=== PATIENT | female | born 1990 | race African-American/Black ===

== ENCOUNTER 2017-02-16 15:56 | Emergency (ER) | payer OTHER ==
[2017-02-16 16:44] VITALS: BP 140/72; PULSE 80; TEMP 98.6; BMI 35.3
[2017-02-16] MEDS ORDERED: DIPHTH,PERTUSS(ACELL),TET 0.5 ML DISP.SYRIN IM ONE (17:32)
--- NOTE | 2017-02-16 17:44 | PDOC ---
History of Present Illness - General Chief Complaint: Laceration Stated Complaint: LACERATED RT FINGER Time Seen by Provider: 02/16/17 17:27 History Source: Patient Exam Limitations: No Limitations - History of Present Illness Initial Comments: 02/16/17 17:39 CHIEF COMPLAINT: Fingertip avulsion right third finger. 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 Sustained fingertip avulsion to right third finger at approximately 2 PM today. Bleeding controlled upon arrival, good range of motion of finger, there is no visible tendon, ligament or bone. Timing/Duration: reports: this afternoon Severity: Yes: moderate Location: reports: extremities Past History - Past Medical History Allergies/Adverse Reactions: Allergies Allergy/AdvReac Type Severity Reaction Status Date / Time shellfish derived AdvReac Severe Difficulty Verified 02/16/17 16:44 Breathing Home Medications: Ambulatory Orders Salmeterol/Fluticasone [Advair 100Mcg/50Mcg -] 1 inh PO BID 06/12/14 Montelukast Na [Singulair -] 10 mg PO HS 01/30/16 Cephalexin [Keflex] 500 mg PO TID #15 capsule 02/16/17 Oxycodone HCl/Acetaminophen [Percocet 5-325 mg Tablet] 1 - 2 tab PO Q6H #14 tablet MDD 6 02/16/17 Asthma: Yes Cancer: No Cardiac Disorders: No Diabetes: No Disorders: Yes (renal stones) HTN: No Seizures: No Thyroid Disease: No - Reproductive History Cervical CA: No Dysfunctional Uterine Bleeding: No Ectopic : No Endometrial CA: No - Immunization History Immunization Up to Date: No - Psycho/Social/Smoking Cessation Hx Anxiety: No Suicidal Ideation: No Smoking History: Current some day smoker Number of Cigarettes Smoked Daily: 4 Information on smoking cessation initiated: No 'Breaking Loose' booklet given: 02/03/16 Hx Alcohol Use: Yes (SOCIAL) Drug/Substance Use Hx: No Substance Use Type: None Hx Substance Use Treatment: No Review of Systems - Review of Systems Constitutional: No: Symptoms Reported HEENTM: No: Symptoms Reported Respiratory: No: Symptoms reported Musculoskeletal: No: Joint Pain, Joint Swelling Integumentary: Yes: Other (2 cm fingertip avulsion with left lateral nail partial avulsion, flap not noted.) Neurological: No: Symptoms reported, Paresthesia, Tingling, Tremors Hematologic/Lymphatic: No: Symptoms Reported All Other Systems: Reviewed and Negative *Physical Exam - Vital Signs Last Vital Signs Temp Pulse Resp BP Pulse Ox 98.6 F 80 20 140/72 100 02/16/17 16:40 02/16/17 16:40 02/16/17 16:40 02/16/17 16:40 02/16/17 16:40 - Physical Exam General Appearance: Yes: Appropriately Dressed. No: Apparent Distress Lymphatic: negative: Adenopathy Musculoskeletal: positive: Normal Inspection Extremity: positive: Other (centimeter distal fingertip avulsion with partial left medial nail avulsion. ). negative: Erythema Integumentary: negative: Erythema, Swelling, Ecchymosis, Bruising Neurologic: positive: Alert, Normal Mood/Affect ED Treatment Course - Medications Given in the ED: ED Medications Discontinued Medications Generic Name Dose Route Start Last Admin Trade Name Freq PRN Reason Stop Dose Admin Oxycodone/Acetaminophen 1 combo 02/16/17 17:31 02/16/17 17:35 Percocet 5/325 - PO 02/16/17 17:32 1 combo ONCE ONE Administration Medical Decision Making - Medical Decision Making 02/16/17 17:45 A/P: Patient here for fingertip avulsion to the right third finger. Area cleansed with normal saline, there is no flap noted. Surgicel placed on, hemostasis achieved, sterile dressing applied, care instructions given to patient. Instructed patient to leave Surgicel intact until it falls off on its own, than increased redness swelling or signs of infection will need to return to ER. *DC/Admit/Observation/Transfer Diagnosis at time of Disposition: Avulsion, finger tip Qualifiers: Encounter type: initial encounter Qualified Code(s): S61.209A - Unspecified open wound of unspecified finger without damage to nail, initial encounter - Discharge Dispostion Disposition: HOME Condition at time of disposition: Good Admit: No - Prescriptions Prescriptions: Cephalexin [Keflex] 500 mg PO TID #15 capsule Oxycodone HCl/Acetaminophen [Percocet 5-325 mg Tablet] 1 - 2 tab PO Q6H #14 tablet MDD 6 - Patient Instructions Printed Discharge Instructions: DI for Avulsion Laceration (Not Requiring Sutures) Additional Instructions: Please keep area clean and dry Please keep dressing on until tomorrow please leave Surgicel is directly on wound on until it falls off on its own. If any increased redness swelling or signs of infection return to ER
== END 2017-02-16 18:05 | disposition home or self-care (01) ==
LOC: JERFT 15:56
PROC: 3E0234Z Introduction of Serum, Toxoid and Vaccine into Muscle, Percutaneous Approach (ICD-10-PCS; principal; 2017-02-16)
PROC: 0HQFXZZ Repair Right Hand Skin, External Approach (ICD-10-PCS; 2017-02-16)
DX: S61.212A Laceration without foreign body of right middle finger without damage to nail, initial encounter (principal); W31.82XA Contact with other commercial machinery, initial encounter; Y93.G1 Activity, food preparation and clean up; Y92.512 Supermarket, store or market as the place of occurrence of the external cause; Y99.0 Civilian activity done for income or pay
CPT/HCPCS: 90715; 99281-25

== ENCOUNTER 2018-06-03 15:01 | Emergency (ER) | payer OTHER ==
[2018-06-03 15:13] VITALS: BMI 32.5
[2018-06-03] MEDS ORDERED: predniSONE 20 MG TABLET (UD) PO ONE (15:20)
[2018-06-03] MEDS ORDERED: predniSONE 20 MG TABLET (UD) ONE (15:28)
[2018-06-03] MEDS ORDERED: ALBUTEROL SO4 2.5/IPRATROPIUM 0.5 INH SOL 3 ML VIAL.NEB. NEB ONE ×5 (15:28→19:58)
[2018-06-03] MEDS: ALBUTEROL SO4 2.5/IPRATROPIUM 0.5 INH SOL 3 ML VIAL.NEB. NEB SCH ×4 (15:38→16:52)
--- NOTE | 2018-06-03 15:46 | PDOC ---
History of Present Illness - General Chief Complaint: Asthma Stated Complaint: ASTHMA Time Seen by Provider: 06/03/18 15:14 History Source: Patient - History of Present Illness Timing/Duration: other Associated Symptoms: reports: cough, shortness of breath. denies: fever/chills Past History - Past Medical History Allergies/Adverse Reactions: Allergies Allergy/AdvReac Type Severity Reaction Status Date / Time shellfish derived AdvReac Severe Difficulty Verified 06/03/18 15:12 Breathing Home Medications: Ambulatory Orders Salmeterol/Fluticasone [Advair 100Mcg/50Mcg -] 1 inh PO BID 06/12/14 Montelukast Na [Singulair -] 10 mg PO HS 01/30/16 Cephalexin [Keflex] 500 mg PO TID #15 capsule 02/16/17 Oxycodone HCl/Acetaminophen [Percocet 5-325 mg Tablet] 1 - 2 tab PO Q6H #14 tablet MDD 6 02/16/17 Prednisone [Deltasone] 40 mg PO DAILY #8 tablet 06/03/18 Asthma: Yes Cancer: No Cardiac Disorders: No COPD: No Diabetes: No Disorders: Yes (renal stones) HTN: No Seizures: No Thyroid Disease: No - Reproductive History Cervical CA: No Dysfunctional Uterine Bleeding: No Ectopic : No Endometrial CA: No - Immunization History Immunization Up to Date: No - Suicide/Smoking/Psychosocial Hx Smoking History: Never smoked Number of Cigarettes Smoked Daily: 4 'Breaking Loose' booklet given: 02/03/16 Hx Alcohol Use: Yes (SOCIAL) Drug/Substance Use Hx: No Substance Use Type: None Hx Substance Use Treatment: No Review of Systems - Review of Systems Constitutional: No: Chills, Fever Respiratory: Yes: Cough, Shortness of Breath, Wheezing Cardiac (ROS): Yes: Chest Tightness *Physical Exam - Vital Signs Last Vital Signs Temp Pulse Resp BP Pulse Ox 98.4 F 103 H 20 119/83 98 06/03/18 15:10 06/03/18 15:10 06/03/18 15:10 06/03/18 15:10 06/03/18 15:10 - Physical Exam General Appearance: Yes: Appropriately Dressed. No: Apparent Distress HEENT: positive: Normal Voice Neck: positive: Supple. negative: Lymphadenopathy (R), Lymphadenopathy (L) Respiratory/Chest: positive: Wheezing. negative: Respiratory Distress Cardiovascular: positive: S1, S2, Tachycardia Integumentary: positive: Dry, Warm Neurologic: positive: Fully Oriented, Alert, Normal Mood/Affect Moderate Sedation - Procedure Monitoring Vital Signs: Procedure Monitoring Vital Signs Temperature 98.4 F 06/03/18 15:10 Pulse Rate 103 H 06/03/18 15:10 Respiratory Rate 20 06/03/18 15:10 Blood Pressure 119/83 06/03/18 15:10 O2 Sat by Pulse Oximetry (%) 98 06/03/18 15:10 ED Treatment Course - Medications Given in the ED: ED Medications Discontinued Medications Generic Name Dose Route Start Last Admin Trade Name Sara PRN Reason Stop Dose Admin Prednisone 60 mg 06/03/18 15:20 06/03/18 15:38 Deltasone - PO 06/03/18 15:21 60 mg ONCE ONE Administration Medical Decision Making - Medical Decision Making 06/03/18 16:09 27-year-old female, history of asthma, uses pump and nebulizer at home, s/p last admission a year ago at [facility], no intubations, here with shortness of breath and wheezing in the setting of URI x several days. States medications not relieving symptoms at home. Denies fever or chills. No history of pneumonia and no tobacco history See exam Asthma flare Sating 98% on RA and in NAD w/ +wheezing diffusely -nebs -pred -reassess 06/03/18 16:56 Pt continues to complain of shortness of breath, wheezing and chest tightness despite multiple nebulizers and steroids. CXR done and negative. At this point will order mag and get basic labs in anticipation for observation admission. Pt signed out to EDWINA Hendrix at this time 06/03/18 16:58 *DC/Admit/Observation/Transfer Diagnosis at time of Disposition: Asthma Qualifiers: Asthma severity: mild Asthma persistence: unspecified Asthma complication type : with acute exacerbation Qualified Code(s): J45.901 - Unspecified asthma with ( acute) exacerbation - Prescriptions Prescriptions: Prednisone [Deltasone] 40 mg PO DAILY #8 tablet - Referrals - Patient Instructions - Post Discharge Activity
[2018-06-03] MEDS ORDERED: MAGNESIUM SULF 50% (8.12 MEQ/2 ML-1 GM VIAL) IVPB ONE (16:55)
[2018-06-03] MEDS ORDERED: MAGNESIUM 1GM/D5W - 1 GM/100 ML IVPB IVPB ONE (17:33)
[2018-06-03 17:38] LABS: BASO % 0.5 % (0-2.0); EOS % 2.7 % (0-4.5); HEMATOCRIT 38.6 % (32.4-45.2); LYMPH % 23.7 % (8-40); MCH 32.8 pg (25.7-33.7); MCHC 36.3 g/dl (32.0-36.0); MEAN CELL VOLUME 90.4 fl (80-96); MEAN PLT VOLUME 8.9 fl (7.5-11.1); MONO % 4.7 % (3.8-10.2); NEUT % 68.4 % (42.8-82.8); PLATELET COUNT 216 K/MM3 (134-434); RBC 4.27 M/mm3 (3.60-5.2); RDW 12.8 % (11.6-15.6); WHITE BLOOD COUNT 6.9 K/mm3 (4.0-10.0)
[2018-06-03 18:23] LABS: ALBUMIN 3.6 g/dl (3.4-5.0); ALK PHOS 65 U/L (45-117); ANION GAP 7 MMOL/L (8-16); BILIRUBIN,TOTAL 0.6 mg/dL (0.2-1); BLOOD UREA NITROGEN 7 mg/dL (7-18); CALCIUM 8.6 mg/dL (8.5-10.1); CHLORIDE 108 mmol/L (98-107); CO2 22 mmol/L (21-32); CREATININE 0.9 mg/dL (0.55-1.3); GLUCOSE,RANDOM 94 mg/dL (74-106); POTASSIUM 4.3 mmol/L (3.5-5.1); SGPT/ALT 29 U/L (13-61); SODIUM 137 mmol/L (136-145); TOT PROT 7.7 g/dl (6.4-8.2)
[2018-06-03 18:24] LABS: SGOT/AST 29 U/L (15-37)
--- NOTE | 2018-06-03 18:45 | PDOC ---
*Physical Exam - Vital Signs Last Vital Signs Temp Pulse Resp BP Pulse Ox 98.4 F 103 H 20 119/83 98 06/03/18 15:10 06/03/18 15:10 06/03/18 15:10 06/03/18 15:10 06/03/18 15:10 - Physical Exam General Appearance: Yes: Nourished, Appropriately Dressed, Apparent Distress Respiratory/Chest: positive: Normal Breath Sounds, Wheezing (expiratory wheezing to the bases with fair aeration). negative: Respiratory Distress, Accessory Muscle Use Cardiovascular: positive: Regular Rhythm, Regular Rate, S1, S2 (present). negative: Murmur ED Treatment Course - LABORATORY CBC & Chemistry Diagram: 06/03/18 16:38 06/03/18 16:38 - ADDITIONAL ORDERS Additional order review: Laboratory Results 06/03/18 06/03/18 16:38 16:17 Sodium 137 Potassium 4.3 Chloride 108 H Carbon Dioxide 22 Anion Gap 7 L BUN 7 Creatinine 0.9 Creat Clearance w eGFR > 60 Random Glucose 94 Calcium 8.6 Total Bilirubin 0.6 AST 29 ALT 29 Alkaline Phosphatase 65 Total Protein 7.7 Albumin 3.6 Urine HCG, Qual Negative 06/03/18 16:38 RBC 4.27 MCV 90.4 MCHC 36.3 H RDW 12.8 MPV 8.9 Neutrophils % 68.4 D Lymphocytes % 23.7 D Monocytes % 4.7 Eosinophils % 2.7 Basophils % 0.5 - Medications Given in the ED: ED Medications Discontinued Medications Generic Name Dose Route Start Last Admin Trade Name Freq PRN Reason Stop Dose Admin Albuterol/Ipratropium 1 amp 06/03/18 15:30 06/03/18 16:52 Duoneb - NEB 06/03/18 16:16 1 amp Q15M JH Administration Prednisone 60 mg 06/03/18 15:20 06/03/18 15:38 Deltasone - PO 06/03/18 15:21 60 mg ONCE ONE Administration Medical Decision Making - Medical Decision Making 06/03/18 18:42 Pt is a 27 y/o F with PMH of asthma who presents to the ED for asthma exacerbation in the setting of URI. Initially seen in fast track and upgraded for wheezing and tight breath sounds despite two duonebs and prednisone -Mag started -Pt reports feeling better -Good aeration to the bases at this point; however, moderate wheezing still present -2 more duonebs ordered -Lab work is unremarkable, CXR is negative -Sign out given to PENNY Palafox. Pending treatment and re-evaluation *DC/Admit/Observation/Transfer Diagnosis at time of Disposition: Asthma Qualifiers: Asthma severity: mild Asthma persistence: unspecified Asthma complication type : with acute exacerbation Qualified Code(s): J45.901 - Unspecified asthma with ( acute) exacerbation - Prescriptions Prescriptions: Prednisone [Deltasone] 40 mg PO DAILY #8 tablet - Referrals - Patient Instructions - Post Discharge Activity
[2018-06-03] MEDS ORDERED: MAGNESIUM 1GM/D5W - 2 GM/200 ML IVPB IVPB ONE (19:04)
[2018-06-03 19:54] VITALS: BP 116/73; PULSE 96; TEMP 98.1
--- NOTE | 2018-06-03 19:59 | PDOC ---
*Physical Exam - Vital Signs Last Vital Signs Temp Pulse Resp BP Pulse Ox 98.1 F 96 H 20 116/73 97 06/03/18 19:53 06/03/18 19:53 06/03/18 19:53 06/03/18 19:53 06/03/18 19:53 - Physical Exam General Appearance: Yes: Appropriately Dressed. No: Apparent Distress Neck: positive: Trachea midline, Supple Respiratory/Chest: positive: Wheezing (Expirational). negative: Respiratory Distress, Accessory Muscle Use Cardiovascular: positive: Regular Rhythm, Regular Rate, S1, S2. negative: Edema , Murmur ED Treatment Course - LABORATORY CBC & Chemistry Diagram: 06/03/18 16:38 06/03/18 16:38 - ADDITIONAL ORDERS Additional order review: Laboratory Results 06/03/18 06/03/18 16:38 16:17 Sodium 137 Potassium 4.3 Chloride 108 H Carbon Dioxide 22 Anion Gap 7 L BUN 7 Creatinine 0.9 Creat Clearance w eGFR > 60 Random Glucose 94 Calcium 8.6 Total Bilirubin 0.6 AST 29 ALT 29 Alkaline Phosphatase 65 Total Protein 7.7 Albumin 3.6 Urine HCG, Qual Negative 06/03/18 16:38 RBC 4.27 MCV 90.4 MCHC 36.3 H RDW 12.8 MPV 8.9 Neutrophils % 68.4 D Lymphocytes % 23.7 D Monocytes % 4.7 Eosinophils % 2.7 Basophils % 0.5 - Medications Given in the ED: ED Medications Discontinued Medications Generic Name Dose Route Start Last Admin Trade Name Freq PRN Reason Stop Dose Admin Albuterol/Ipratropium 1 amp 06/03/18 15:30 06/03/18 16:52 Duoneb - NEB 06/03/18 16:16 1 amp Q15M JH Administration Albuterol/Ipratropium 1 amp 06/03/18 18:42 06/03/18 19:18 Duoneb - NEB 06/03/18 18:43 1 amp ONCE ONE Administration Albuterol/Ipratropium 1 amp 06/03/18 18:42 06/03/18 19:18 Duoneb - NEB 06/03/18 18:43 1 amp ONCE ONE Administration Magnesium Sulfate 2 gm 06/03/18 16:55 06/03/18 19:17 Magnesium Sulfate IVPB 06/03/18 16:56 2 gm ONCE ONE Administration Prednisone 60 mg 06/03/18 15:20 06/03/18 15:38 Deltasone - PO 06/03/18 15:21 60 mg ONCE ONE Administration Medical Decision Making - Medical Decision Making 06/03/18 20:02 Received signout from EDWINA Hendrix. Briefly this is a 27-year-old woman past medical history of asthma presents for asthma exacerbation secondary to URI. Patient reports multiple hospitalizations for her asthma but has never been intubated. Patient has received magnesium, DuoNeb x4, prednisone, chest x-ray and lab work. Laboratory testing is unremarkable. Chest x-ray reveals no acute pulmonary process. Currently patient with expiratory wheezes present. Patient reports her breathing is much easier and is requesting discharge at this time. We'll give the patient 2 more doses of albuterol and reevaluate. 06/03/18 20:48 Repeat lung exam reveals clear lungs. Patient is speaking full sentences without distress. Patient is able to her through the emergency department maintaining oxygen saturation greater than 97%. I'll discharge the patient home with prescription for steroids and azithromycin. I discussed the physical exam findings, ancillary test results and final diagnoses with the patient. I answered all of the patient's questions. The patient was satisfied with the care received and felt comfortable with the discharge plan and treatment plan. The patient will call their primary care physician within 24 hours to arrange follow-up and will return to the Emergency Department with any new, persistent or worsening symptoms. *DC/Admit/Observation/Transfer Diagnosis at time of Disposition: Asthma Qualifiers: Asthma severity: mild Asthma persistence: unspecified Asthma complication type : with acute exacerbation Qualified Code(s): J45.901 - Unspecified asthma with ( acute) exacerbation - Discharge Dispostion Disposition: HOME Condition at time of disposition: Stable Decision to Admit order: No - Prescriptions Prescriptions: Azithromycin [Zithromax 250mg Tablets -] 250 mg PO UTDICT #6 tab Prednisone [Deltasone] 40 mg PO DAILY #8 tablet - Referrals - Patient Instructions Printed Discharge Instructions: Asthma -- Adult Additional Instructions: Rest, drink lots of fluids: Teas, water, soups, Pedialyte Saltwater gargles Steamy showers/seem to face break up mucus Avoid contact with others until fevers and cough resolved Lots of handwashing and good hygiene Continue [id number] medications for symptomatic relief Tylenol or Motrin for fever and pain Take azithromycin 500mg on day #1 then 250mg every day until all medications are completed. Followup with private physician in one to 2 days as needed Return to emergency department for worsened symptoms, fevers, dehydration - Post Discharge Activity Forms/Work/School Notes: Back to Work
[2018-06-03] MEDS: ALBUTEROL SO4 0.083% IH SOL 2.5 MG/3 ML VIAL.NEB. NEB SCH ×2 (20:02→20:25)
== END 2018-06-03 21:04 | disposition home or self-care (01) ==
LOC: JERFT 15:01 → JER 15:01
PROC: 3E033GC Introduction of Other Therapeutic Substance into Peripheral Vein, Percutaneous Approach (ICD-10-PCS; principal; 2018-06-03)
PROC: 3E0F7GC Introduction of Other Therapeutic Substance into Respiratory Tract, Via Natural or Artificial Opening (ICD-10-PCS; 2018-06-03)
PROC: 3E0F7GC Introduction of Other Therapeutic Substance into Respiratory Tract, Via Natural or Artificial Opening (ICD-10-PCS; 2018-06-03)
PROC: 3E0F7GC Introduction of Other Therapeutic Substance into Respiratory Tract, Via Natural or Artificial Opening (ICD-10-PCS; 2018-06-03)
PROC: 3E0F7GC Introduction of Other Therapeutic Substance into Respiratory Tract, Via Natural or Artificial Opening (ICD-10-PCS; 2018-06-03)
DX: J45.901 Unspecified asthma with (acute) exacerbation (principal); Z87.442 Personal history of urinary calculi
CPT/HCPCS: 36415; 71046-TC-FY; 80053; 84703; 85025; 99283-25